=== PATIENT | male | born 1990 | race Caucasian/White ===

== ENCOUNTER 2017-03-02 23:05 | Emergency (ER) | payer BC ==
[~2017-03-02] VITALS: Ht 188 cm; Wt 108.9 kg
[2017-03-02] MEDS ORDERED: CEFTRIAXONE 1 G VIAL IM ONE (23:30)
[2017-03-02] MEDS ORDERED: LIDOCAINE HCL 1% 20 ML VIAL ONE (23:43)
[2017-03-02] MEDS ORDERED: CEFTRIAXONE 1 G VIAL ONE (23:43)
--- NOTE | 2017-03-02 23:56 | NUR ---
Patient discharged to home in stable conditon. Written and verbal after care instructions given. Patient verbalizes understanding of instructions.
== END 2017-03-02 23:59 | disposition home or self-care (01) ==
LOC: ER 23:07
DX: J02.9 Acute pharyngitis, unspecified (principal); R50.9 Fever, unspecified
CPT/HCPCS: A4663; J0696; J3490